=== PATIENT | male | born 1960 | race African-American/Black ===

== ENCOUNTER 2016-11-21 18:15 | Emergency (ER) | payer OTHER ==
[~2016-11-21] VITALS: Ht 160 cm; Wt 72.0 kg
[~2016-11-21 18:15] MED LIST: BACL10TA PO; GABA-531 PO; HYDR25TA PO; LISI-662 PO
[2016-11-21] MEDS ORDERED: FINA5TAB41 PO (18:17)
[2016-11-21 18:19] VITALS: BP 117/62
[2016-11-21] MEDS ORDERED: [UNRECOGNIZED DRUG - CODE] PO (21:23)
== END 2016-11-21 20:41 | disposition left against medical advice (07) ==
LOC: EMS 18:15
DX: R51 Headache (principal); Z53.21 Procedure and treatment not carried out due to patient leaving prior to being seen by health care provider

== ENCOUNTER 2016-11-21 20:57 | Emergency (ER) | payer OTHER ==
[~2016-11-21] VITALS: Ht 160 cm; Wt 72.7 kg
[~2016-11-21 20:57] MED LIST changes: +FINA5TAB41 PO
[2016-11-21] MEDS ORDERED: [UNRECOGNIZED DRUG - CODE] PO (21:23)
[2016-11-21] MEDS ORDERED: LIDOCAINE HCL BUFFERED 1% 20 ML VIAL INJ ONE (22:30)
[2016-11-22] MEDS ORDERED: HYDROCODONE/ACETAMINOPHEN 5-325 MG TABLET PO ONE (00:15)
[2016-11-22 01:19] VITALS: BP 137/82
== END 2016-11-22 01:21 | disposition home or self-care (01) ==
LOC: EMS 20:58
DX: S06.0X0A Concussion without loss of consciousness, initial encounter (principal); S01.511A Laceration without foreign body of lip, initial encounter; S16.1XXA Strain of muscle, fascia and tendon at neck level, initial encounter; E78.00 Pure hypercholesterolemia, unspecified; I10 Essential (primary) hypertension; Z88.8 Allergy status to other drugs, medicaments and biological substances; V49.88XA Car occupant (driver) (passenger) injured in other specified transport accidents, initial encounter; Y93.89 Activity, other specified; Y92.89 Other specified places as the place of occurrence of the external cause; Y99.8 Other external cause status
CPT/HCPCS: 12011; 70450; 70486; 72125; 99284; J3490